=== PATIENT | male | born 2000 | race Caucasian/White ===

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

== ENCOUNTER 2022-02-02 11:51 | Emergency (ER) | payer OTHER ==
[~2022-02-02] VITALS: Ht 172.7 cm; Wt 68.2 kg
[2022-02-02 12:25] VITALS: TEMP 98.1
[2022-02-02] MEDS ORDERED: AMOXICILLIN 8751 TAB PO (14:14)
[2022-02-02] MEDS ORDERED: NORCO 325 MG-51 TAB PO (14:14)
[2022-02-02 15:25] VITALS: BP 122/72; PULSE 67
== END 2022-02-02 15:25 | disposition home or self-care (01) ==
LOC: COL.ER 11:51
DX: S61.217A Laceration without foreign body of left little finger without damage to nail, initial encounter (principal); S61.215A Laceration without foreign body of left ring finger without damage to nail, initial encounter; Z23 Encounter for immunization; Z28.310 Unvaccinated for COVID-19; W27.4XXA Contact with kitchen utensil, initial encounter; Y92.59 Other trade areas as the place of occurrence of the external cause; Y99.0 Civilian activity done for income or pay
CPT/HCPCS: J0690; J3010